=== PATIENT | female | born 1970 | race Caucasian/White ===

== ENCOUNTER → 2020-03-02 | Outpatient (CLI) | payer BC | END | disposition home or self-care (01) | LOC: RAD 13:33 | PROVIDERS: ATTEND Internal Medicine Hematology & Oncology | DX: C18.9 Malignant neoplasm of colon, unspecified (principal); J90 Pleural effusion, not elsewhere classified | CPT/HCPCS: 36573; C1751 ==

== ENCOUNTER 2020-03-14 15:18 | Emergency (ER) | payer BC ==
[~2020-03-14] VITALS: Ht 165.1 cm; Wt 80.7 kg
[2020-03-14 15:36] VITALS: BP 122/85
--- NOTE | 2020-03-14 15:45 | NUR ---
PT WAS SEEN IN URGENT CARE THIS MORNING, CXR REVEALED LARGE PLEURAL EFFUSION, PAPERWORK AT BEDSIDE. PT STATES SHE WAS TOLD TO COME TO THE ER AND HAVE A THORACENTESIS. PT PROVIDED WITH WARM BLANKETS, ATTACHED TO MONITOR. CALL LIGHT IN REACH. PT DENIES ANY NEEDS OR CONCERNS AT THIS TIME.
--- NOTE | 2020-03-14 17:05 | NUR ---
PT RESTING IN BED, AWAITING NEXT STEP OF CARE. DENIES ANY NEEDS OR CONCERNS AT THIS TIME, CALL LIGHT IN REACH.
[2020-03-14] MEDS ORDERED: LIDOCAINE 1%, 10ML ONE (17:20)
--- NOTE | 2020-03-14 17:45 | NUR ---
PT TO IR
--- NOTE | 2020-03-14 18:49 | NUR ---
PT OSTOMY LEAKED DURING THORACENTESIS. NEW SUPPLIES ORDERED FROM [facility]. PT DENIES ANY FURTHER NEEDS OR CONCERNS AT THIS TIME. CALL LIGHT IN REACH.
--- NOTE | 2020-03-14 19:38 | NUR ---
Pt ostomy bag unable to be repaired or reattached. [facility] paged for delivery of new supplies, but unavailable at this time.
== END 2020-03-14 20:08 | disposition home or self-care (01) ==
LOC: ED 16:16
DX: C78.01 Secondary malignant neoplasm of right lung (principal); C18.9 Malignant neoplasm of colon, unspecified; J91.0 Malignant pleural effusion; Z90.49 Acquired absence of other specified parts of digestive tract; Z98.51 Tubal ligation status
CPT/HCPCS: 32555; 99285; J3490